=== PATIENT | male | born 1965 | race African-American/Black ===

== ENCOUNTER 2019-07-29 08:34 | Observation (INO) | payer SELFPAY ==
--- NOTE | 2019-07-29 09:20 | CT ---
CT head noncontrast HISTORY: Seizure. FINDINGS: There is no evidence of acute intracranial hemorrhage or infarct. Mild diffuse cortical atr ophy. There is no mass effect or shift of midline structures. Visualized paranasal sinuses remain well-aera carrie. Scalp scar overlies the left frontal calvarium. IMPRESSION : No acute intracranial abnormalities are demonstrated.
[2019-07-29 09:33] LABS: #Basophils 0.1 thou/uL (0.0-0.2); #Eosinphils 0.1 thou/uL (0.0-0.7); #Lymphocytes 0.7 thou/uL (1.20-3.40); #Monocytes 1.1 thou/uL (0.11-0.59); #Neutrophils 5.7 thou/uL (1.40-6.50); %Basophils 0.7 % (0.0-1.0); %Eosinophils 1.5 % (0.0-10.0); %Lymphocytes 9.1 % (21.0-51.0); %Monocytes 13.9 % (0.0-10.0); %Neutrophils 74.8 % (42.0-75.0); Hemoglobin 12.6 g/dL (14.0-18.0); Mean Corpuscular HGB CONC 33.8 g/dL (32.0-36.0); Mean Corpuscular Hemoglobin 33.4 pg (27.0-31.0); Mean Corpuscular Volume 98.8 fL (78.0-98.0); Mean Platelet Volume 10.2 fL (7.4-10.4); Platelet Count 155 thou/uL (130-400); RBC Distribution Width 11.7 % (11.5-14.5); Red Blood Cell (RBC) Count 3.76 mill/uL (4.70-6.10); White Blood Cell (WBC) Count 7.6 thou/uL (4.8-10.8)
[2019-07-29 09:50] LABS: Acetaminophen Less than 6.0 mcg/mL (10.0-30.0); Alcohol Less than 10 mg/dL (Less than 10); Salicylate Less than 8.0 mg/dL (15.0-30.0)
[2019-07-29 09:56] LABS: ALT (SGPT) 86 U/L (8-55); AST (SGOT) 77 U/L (5-34); Alkaline Phosphatase 50 U/L (40-110); Anion Gap 16 mmol/L (10-20); BUN (Urea Nitrogen) 12 mg/dL (8.4-25.7); Bilirubin, Total 0.8 mg/dL (0.2-1.2); Calc. Creatinine Clearance 0 mL/min (70-130); Calcium 9.1 mg/dL (7.8-10.44); Carbon Dioxide 20 mmol/L (22-29); Chloride 99 mmol/L (98-107); Estimated GFR-MDRD 79; Globulin 3.5 g/dL (2.4-3.5); Glucose 210 mg/dL (70-105); Potassium 3.7 mmol/L (3.5-5.1); Protein, Total 7.5 g/dL (6.0-8.3); Sodium 131 mmol/L (136-145)
[2019-07-29 09:56] LABS: Bilirubin Negative (Negative); Blood, Urine 1+ (Negative); Clarity Clear (Clear); Glucose, Urine (Dipstick) Greater than 1000 mg/dL (Negative); Leukocyte Negative Leu/uL (Negative); Nitrite Negative (Negative); Protein, Urine (Dipstick) 200 mg/dL (Neg-Trace); RBC/HPF 0-3 HPF (0-3); Squamous Epithelial 0-3 HPF (0-3); Urobilinogen Normal mg/dL (Less than 2); WBC/HPF 0-3 HPF (0-3)
[2019-07-29 09:59] LABS: Amphetamine Not Detected (NotDetected); Barbiturates Screen Not Detected (NotDetected); Benzodiazepine Screen Not Detected (NotDetected); Cocaine Metabolite Screen Not Detected (NotDetected); Medtox Control Line Valid? VALID (VALID); Medtox Reader # READER 1; Methadone Not Detected (NotDetected); Methamphetamine Not Detected (NotDetected); Opiate Screen Not Detected (NotDetected); Oxycodone Screen Not Detected (NotDetected); Phencyclidine (PCP) Not Detected (NotDetected); THC/Cannabinoid Screen Not Detected (NotDetected); Tricyclic Screen Not Detected (NotDetected)
[2019-07-29 10:09] LABS: Bacteria/HPF Rare-Few HPF (None Seen)
[2019-07-29 10:10] LABS: Sperm/HPF Rare HPF (None Seen)
--- NOTE | 2019-07-29 10:26 | RAD ---
PORTABLE CHEST 1 VIEW: Date: 07/29/2019 Time: 0959 hours HISTORY: Witnessed seizure, fall. FINDINGS: The heart size is normal. The aorta is tortuous. No focal areas of consolidation, pneumothoraces, or pleural effusions are seen. IMPRESSION: No radiographic evidence of acute cardiopulmonary process. POS: NAGAA
[2019-07-29] MEDS ORDERED: Lorazepam 2 MG/ML VIAL ONE (12:08)
[2019-07-29] MEDS ORDERED: Multivitamins, Adult 10 ML, Thiamine HCl 100 MG, Folic Acid 1 MG in Dextrose 5 %-0.45 %... IV SCH (12:30)
[2019-07-29] MEDS ORDERED: Diazepam 5 MG TAB ONE (13:12)
[2019-07-29 14:16] VITALS: BMI 27.3
[2019-07-29] MEDS ORDERED: Acetaminophen 325 MG TAB PO PRN (14:44)
[2019-07-29] MEDS ORDERED: Ondansetron PF 4 MG/2 ML Vial IVP PRN (14:44)
[2019-07-29] MEDS ORDERED: Lorazepam 2 MG/ML VIAL SLOW IVP PRN (14:46)
[2019-07-29] MEDS ORDERED: Dextrose 50% Abboject 50 ML SYRINGE SLOW IVP PRN (15:04)
[2019-07-29] MEDS ORDERED: Dextrose 5% in Water 1,000 ML IV PRN (15:04)
[2019-07-29] MEDS ORDERED: HumaLOG 300 UNITS/3 ML VIAL SC PRN ×2 (15:04)
--- NOTE | 2019-07-29 15:47 | HP ---
PRIMARY CARE PROVIDER: None. CHIEF COMPLAINT: Passed out. HISTORY OF PRESENT ILLNESS: A 53-year-old male with history of hypothyroidism and hypertension as well as reported significant daily alcohol use, who presents to the emergency room with a complaint of blacking out. History is obtained from the emergency room physician, who reports that the patient had witnessed seizure activity. Because of this, the patient was brought in by EMS. The patient notes that daily he has several drinks of gin and whiskey, and he stopped this 3 days ago. He reports that his hands have been shaky. He denies any prior history of similar symptoms, denies any seizure history. He also denies any fevers, chills, nausea, vomiting, or palpitations. In the emergency room, the patient noted to be tremulous, he received 2 mg IV Ativan, and started on a banana bag. Per my request, he was also given 10 mg of oral Valium and hospitalist called for admission. ALLERGIES: NO KNOWN DRUG ALLERGIES. CURRENT MEDICATIONS: Confirmed with [facility] in [place]. These medications were filled on June 28. 1. Amlodipine 5 mg daily. 2. Levothyroxine 100 mcg daily. PAST MEDICAL HISTORY: 1. Hypothyroidism. 2. Hypertension. 3. Cataracts. 4. Diabetes mellitus, not on medication. PAST SURGICAL HISTORY: Appendectomy. SOCIAL HISTORY: The patient reports quitting tobacco, lives with his mom, and uses alcohol as noted above. He reports that he was released from [facility] approximately a year ago and has been drinking alcohol since then. He is a full code, and his surrogate decision makers are either his mom or his sisters. FAMILY HISTORY: Significant for mom with cancer, he thinks it is colon cancer. REVIEW OF SYSTEMS: Positive for nausea after the medication he received today and approximately one week of his left knee aching. Negative for fevers, chills, nausea, vomiting, or palpitations. All remaining review of systems are reviewed and negative. PHYSICAL EXAMINATION: VITAL SIGNS: Most recent vital signs; blood pressure 151/97, pulse 96, respirations 18, temperature 99.2, and sat 100% on room air. GENERAL: Awake, alert, responsive, not in apparent distress. Able to speak in regular sentences. HEENT: Pupils are equal and round. Oral mucosa is pink and moist. NECK: Supple, nontender. LYMPHATICS: No palpable cervical or supraclavicular lymphadenopathy. HEART: Normal S1 and S2. Regular rate and rhythm. No significant murmur. ABDOMEN: Soft, present bowel sounds. Nontender, nondistended. EXTREMITIES: No clubbing, cyanosis, or edema. MUSCULOSKELETAL: He does have a palpable fluid consistent with bursitis on the medial aspect of his left knee, no overlying erythema or tenderness to palpation. NEUROLOGIC: Bilateral arm and hand tremors. No focal deficits. SKIN: No current rashes. PSYCH: Appears euthymic. VASCULAR: 2+ radial pulses. LABORATORY DATA: Reviewed. CBC; 7.6, 12.6, 37.1, and 155. Chemistry: 131, 3.7, 99, 20, 12, 1.18, 210. T bilirubin 0.8, AST 77, ALT 86, alkaline phosphatase 50, total protein 7.5, albumin 4. Prolactin 14. Urinalysis; present protein, present glucose, present ketones, 1+ blood, 0 to 3 red blood cells and white blood cells. Toxicology; negative urine drug screen. Negative alcohol. Negative Tylenol. Negative salicylates. Brain CT is personally reviewed. No acute intracranial process. Chest x-ray, no acute cardiopulmonary process. EKG, sinus rhythm, normal axis, LVH, normal intervals, no ST changes. IMPRESSION: 1. Seizure in the context of alcohol withdrawal in a patient with reported large volumes of daily alcohol consumption. 2. Hyponatremia, mild. 3. Diabetes mellitus, uncontrolled. 4. Elevated LFTs, likely secondary to above. 5. Anemia, also likely secondary to above. 6. Hypertension, not optimally controlled. 7. Hypothyroidism, unknown control, on replacement therapy. PLAN: 1. Start with observation status in the hospital. 2. Complete this banana bag, we will start oral vitamin replacement tomorrow. 3. We will schedule Valium 5 mg every 6 hours, continue the ASE protocol with p.r.n. Ativan for seizures or an ASE over 10. 4. Check a TSH in the morning and continue his current dose of levothyroxine for now. 5. Continue amlodipine with hold parameters to avoid hypotension. 6. Holding on a longer acting benzo as I am uncertain about the patient's liver function/ability to process long-acting medications that are hepatically cleared. 7. We will order a sliding scale insulin and ACHS glucose checks. 8. Monitor his renal panel including his sodium level. 9. Seizure precautions and fall precautions. 10. DVT prophylaxis with enoxaparin. 11. GI prophylaxis not indicated. 12. Code status is full. 13. Reviewed the plan of care with the patient, who demonstrates understanding, with encouragement for alcohol cessation in the future, no questions or further needs at the end of evaluation. 14. The patient is at high risk given age, comorbidities, and current presentation. Job ID: [id number] MTDD
[2019-07-29] MEDS: Diazepam 5 MG TAB PO SCH (17:20)
[2019-07-29] MEDS ORDERED: Melatonin 3 MG TAB PO SCH (22:30)
[2019-07-30] MEDS: Diazepam 5 MG TAB PO SCH ×2 (00:07→06:43)
[2019-07-30 05:45] LABS: Band 9 % (5-11); Eosinophils 3 % (0-10); Lymphocytes 18 % (21-51); MDiff Complete? YES; Mean Corpuscular HGB CONC 32.1 g/dL (32.0-36.0); Mean Corpuscular Hemoglobin 32.1 pg (27.0-31.0); Monocytes 15 % (0-10); Neutrophil 55 % (42-75); Platelet Count 156 thou/uL (130-400); Platelet Morphology Comment Appears Adequate; RBC Distribution Width 11.9 % (11.5-14.5); Red Blood Cell (RBC) Count 4.03 mill/uL (4.70-6.10); White Blood Cell (WBC) Count 6.3 thou/uL (4.8-10.8)
[2019-07-30 05:50] LABS: ALT (SGPT) 90 U/L (8-55); AST (SGOT) 87 U/L (5-34); Albumin 3.7 g/dL (3.5-5.0); Alkaline Phosphatase 48 U/L (40-110); Anion Gap 14 mmol/L (10-20); BUN (Urea Nitrogen) 11 mg/dL (8.4-25.7); Bilirubin, Total 1.1 mg/dL (0.2-1.2); Calc. Creatinine Clearance 97 mL/min (70-130); Carbon Dioxide 23 mmol/L (22-29); Chloride 103 mmol/L (98-107); Estimated GFR-MDRD Greater than 90; Globulin 3.6 g/dL (2.4-3.5); Glucose 89 mg/dL (70-105); Potassium 4.2 mmol/L (3.5-5.1); Protein, Total 7.3 g/dL (6.0-8.3); Sodium 136 mmol/L (136-145)
[2019-07-30] MEDS ORDERED: Levothyroxine Sodium 100 MCG TAB PO SCH (06:00)
[2019-07-30 07:48] VITALS: TEMP 98.5
[2019-07-30 08:41] VITALS: BP 145/101
[2019-07-30] MEDS ORDERED: Folic Acid 1 MG TAB PO SCH (09:00)
[2019-07-30] MEDS ORDERED: Enoxaparin Sodium 40 MG/0.4 ML SYRINGE SC SCH (09:00)
[2019-07-30] MEDS ORDERED: Thiamine 100 MG TAB PO SCH (09:00)
[2019-07-30] MEDS ORDERED: Amlodipine 5 MG TAB PO SCH (09:00)
[2019-07-30] MEDS ORDERED: Multivitamin W/ Minerals 1 TAB PO SCH (09:00)
--- NOTE | 2019-07-30 12:02 | CON ---
DATE OF CONSULTATION: 07/30/2019 CONSULTING SERVICE: Neurology. REASON FOR CONSULTATION: Alcohol withdrawal seizure. HISTORY OF PRESENT ILLNESS: A 53-year-old male with history significant for hypothyroidism, hypertension, and alcohol abuse, presented to the hospital with a complaint of passing out. He also had a witnessed seizure activity in the emergency room. Per the patient, he drinks several drinks of gin and whisky and stopped 3 days ago. Since then, he felt his hands were shaking, but he has no recollection of the seizures. He denies prior history of seizures or family history of seizures. He denies history of stroke, meningitis, encephalitis, or history of head trauma. He also denies any focal weakness, dizziness, palpitation, headache, nausea, vomiting, chest pain, or abdominal pain. In the emergency room, he was found to be tremulous and received 2 mg of Ativan IV and was started on banana bag. He was also given 10 mg Valium oral and was admitted for observation. He has no seizures since admission to the hospital. ROS: All 14 systems were reviewed and were negative except mentioned on HPI ALLERGIES: NO KNOWN DRUG ALLERGIES. CURRENT MEDICATIONS: 1. Amlodipine 5 mg daily. 2. Levothyroxine 100 mcg daily. PAST MEDICAL HISTORY: Hypothyroidism, hypertension, cataracts, diabetes mellitus, not taking any medicines. PAST SURGICAL HISTORY: Status post appendectomy. FAMILY HISTORY: No family history of epilepsy. SOCIAL HISTORY: The patient lives with his mother. He abuses alcohol. He recently quit tobacco. He was released from care home about a year ago. DATA REVIEWED: I reviewed the head CT, which was negative for acute intracranial pathology. Chest x-raydid not reveal any acute cardiopulmonary process. EKG shows normal sinus rhythm. PHYSICAL EXAMINATION 145/90 88 17 GENERAL: Patient is awake, alert and in no apparent distress. HEENT: Normocephalic and atraumatic. Sclerae are anicteric. NECK: Supple without meningismus or bruits. HEART: Regular. EXTREMITIES: Without clubbing, cyanosis, or edema. NEUROLOGIC: Normal exam as detailed below Mental Status: Speech is spontaneous and fluent, without dysarthria. Naming, repetitions, calculations, concentration, alertness, orientation, immediate and delayed recall, and fund of knowledge are intact. There is no language or cognitive deficits. Cranial Nerves: Pupils are equally reactive to light. Eye movements are full and conjugate without nystagmus. Visual guidry are full to confrontational testing. On funduscopic exam, there is no disk edema, exudate, or hemorrhage. Facial expression is symmetric. Facial sensation is symmetrically preserved. Hearing is symmetrically preserved as tested with a tuning fork. Tongue protrudes midline. Palate and uvula raise symmetrically. Sternocleidomastoid and trapezius strength are full. Motor: There is normal muscle tone, bulk, and power, 5/5 in all muscle groups of the upper and lower limbs. Reflexes: Muscle stretch reflexes are symmetric at all locations in the upper and lower extremities. Plantar response is toe down going bilaterally. Sensation: Sensation is preserved to light touch and vibration equally in the upper and lower extremities. Coordination: Coordination testing that includes [id number], rapid alternating movements and [id number]-ra-[id number] movements is equally accurate, with no dysmetria, ataxia, drift, or tremor. Gait: Gait and balance are stable, without ataxia. ASSESSMENT AND PLAN: A 53-year-old male with history of alcohol abuse, consulted for alcohol abuse and seizure. Head CT reviewed, which did not reveal any acute intracranial pathology. The patient does not have prior history of seizures but he has obvious precipitating factor for this provoked alcohol withdrawals, seizures , alcohol abuse. The patient counseled on alcohol abuse. Continue home medications. Continue medical management per primary team. Continue seizure precautions. He should not be driving for 3 months from the date of last seizure per [place] state law. He does not need anticonvulsants at this time. Consider MRI Brain as outpatient. The patient is clinically stable. He can be discharged with a followup with the primary care physician Thank you for the consult. Job ID: [id number] [facility]
--- NOTE | 2019-07-31 14:07 | DIS ---
DATE OF ADMISSION: 07/29/2019 DATE OF DISCHARGE: 07/30/2019 DISCHARGE DIAGNOSES: 1. Alcohol withdrawal seizure. 2. Hypertension. 3. Hypothyroidism. 4. Diet-controlled diabetes. 5. Elevated LFTs, likely secondary to alcohol abuse. 6. Alcohol abuse. HISTORY OF PRESENT ILLNESS: This patient is a 53-year-old male, who had reported significant daily alcohol user. At this time, stopped about 3 days prior. Subsequently was seen to have a seizure type activity by family member, brought to the emergency department, where he received Ativan and subsequent oral Valium. He was placed on observation status. He did well. He had no further seizure-type activity. He was awake and alert, ambulating and able to move around to take shower without any difficulties. He was confident that he would have no problem discontinuing alcohol use as that was likely reported to his seizure. He had a negative head CT, chest x-ray, and had a consultation from the neurologist, who felt he was stable for discharge without any further medications. PHYSICAL EXAMINATION: VITAL SIGNS: On the day of discharge, temperature was 98.5, pulse 91, BP ranged from 119/87 to 145/101, room air sat was 100%, and respirations were 16. GENERAL: He was awake and alert. HEART: Regular rate and rhythm. LUNGS: Clear. ABDOMEN: Benign. EXTREMITIES: No edema. NEUROLOGICAL: Appeared to be fully intact with no deficits. DISPOSITION: The patient is discharged home to resume his usual home medications. He will follow up with his primary care provider. His activity is unrestricted and his diet is regular. He can return to the hospital at anytime should he have the need to do so. Job ID: [id number]
--- NOTE | 2019-08-08 16:25 | EKG ---
Test Reason : Blood Pressure : / mmHG Vent. Rate : 093 BPM Atrial Rate : 093 BPM P-R Int : 160 ms QRS Dur : 106 ms QT Int : 360 ms P-R-T Axes : 070 003 028 degrees QTc Int : 447 ms Normal sinus rhythm Moderate voltage criteria for LVH, may be normal variant Borderline ECG Confirmed by DILEEP MOONEY, BERTA ([id number]), copy editor NICOLASA SIMMONS ([id number]) on 08/08/2019 4:25:17 PM Referred By: Confirmed By:BERTA FALK MD
== END 2019-07-30 11:40 | disposition home or self-care (01) ==
LOC: ERS 08:34 → 2SE 14:02
PROVIDERS: ADMIT Family Medicine; ATTEND Family Medicine
DX: F10.239 Alcohol dependence with withdrawal, unspecified (principal); R56.9 Unspecified convulsions; I10 Essential (primary) hypertension; E03.9 Hypothyroidism, unspecified; E87.1 Hypo-osmolality and hyponatremia; E11.9 Type 2 diabetes mellitus without complications; R79.89 Other specified abnormal findings of blood chemistry; D64.9 Anemia, unspecified; Z87.891 Personal history of nicotine dependence; Z79.899 Other long term (current) drug therapy
CPT/HCPCS: 36415; 36416; 70450; 71045; 80053; 80306; 80307; 81003; 81015; 83735; 84146; 84443; 84484; 85025; 93005; 94760; 96365; 96372; 96375; G0378; J1650; J2060; J3411; J7042

== ENCOUNTER 2023-09-07 15:08 | Emergency (ER) | payer SELFPAY ==
[2023-09-07 16:12] LABS: #Basophils 0.18 10x3/uL (0.0-0.2); %Basophils 2.3 % (0.0-1.0); %Eosinophils 5.3 % (0.0-10.0); %Lymphocytes 26.9 % (21.0-51.0); %Monocytes 14.6 % (0.0-10.0); %Neutrophils 50.5 % (42.0-75.0); Hemoglobin 12.6 g/dL (14.0-18.0); Mean Corpuscular HGB CONC 33.2 g/dL (32.0-36.0); Mean Corpuscular Hemoglobin 32.2 pg (27.0-31.0); Mean Corpuscular Volume 97.2 fL (78.0-98.0); Mean Platelet Volume 12.5 fL (7.4-10.4); Platelet Count 200 10x3/uL (130-400); RBC Distribution Width 14.1 % (11.5-14.5); Red Blood Cell (RBC) Count 3.91 mill/uL (4.70-6.10)
[2023-09-07 16:21] LABS: Bacteria/HPF None Seen HPF (None Seen); Bilirubin Negative (Negative); Blood, Urine Negative (Negative); CAUTI Indications for Culture Alt mental st,lethar; Clarity Clear (Clear); Glucose, Urine (Dipstick) Normal (Negative); Ketone, Urine Negative (Negative); Leukocyte Negative Leu/uL (Negative); Nitrite Negative (Negative); Protein, Urine (Dipstick) 30 mg/dL (Neg-Trace); RBC/HPF 0-3 HPF (0-3); Specific Gravity, Urine 1.004 (1.002-1.036); Squamous Epithelial None Seen HPF (0-3); Urobilinogen Normal mg/dL (Less than 2); WBC/HPF 0-3 HPF (0-3); pH, Urine 5.5 (5.0-9.0)
[2023-09-07 16:22] LABS: Urine Culture Reflex No No
[2023-09-07 16:23] LABS: Acetaminophen Less than 10 mcg/mL (10.0-30.0); Alcohol 418.7 mg/dL (Less than 10); Salicylate Less than 8.0 mg/dL (15.0-30.0)
[2023-09-07 16:24] LABS: ALT (SGPT) 136 U/L (8-55); AST (SGOT) 171 U/L (5-34); Albumin 3.5 g/dL (3.5-5.0); Alkaline Phosphatase 152 U/L (40-110); Anion Gap 20 mmol/L (10-20); BUN (Urea Nitrogen) 6 mg/dL (8.4-25.7); Bilirubin, Total 0.9 mg/dL (0.2-1.2); Calc. Creatinine Clearance 0 mL/min (70-130); Calcium 8.7 mg/dL (7.8-10.44); Carbon Dioxide 18 mmol/L (22-29); Chloride 104 mmol/L (98-107); Estimated GFR 101; Globulin 4.4 g/dL (2.4-3.5); Glucose 135 mg/dL (70-105); Protein, Total 7.9 g/dL (6.0-8.3); Sodium 138 mmol/L (136-145)
[2023-09-07 16:27] LABS: Amphetamine Not Detected (NotDetected); Barbiturates Screen Not Detected (NotDetected); Benzodiazepine Screen Not Detected (NotDetected); Cocaine Metabolite Screen Not Detected (NotDetected); Methadone Not Detected (NotDetected); Methamphetamine Not Detected (NotDetected); Opiate Screen Not Detected (NotDetected); Oxycodone Screen Not Detected (NotDetected); Phencyclidine (PCP) Not Detected (NotDetected); THC/Cannabinoid Screen Not Detected (NotDetected); Tricyclic Screen Not Detected (NotDetected)
== END 2023-09-07 17:55 | disposition home or self-care (01) ==
LOC: ERS 15:08
DX: R55 Syncope and collapse (principal); F10.129 Alcohol abuse with intoxication, unspecified; Z55.6 Problems related to health literacy; Z87.891 Personal history of nicotine dependence
CPT/HCPCS: 36415; 70450; 71045; 80053; 80306; 80307; 81001; 83605; 84484; 85025; 93005; 96360

== ENCOUNTER 2023-10-16 13:00 | Outpatient (CLI) | payer OTHER | END 2023-10-16 13:01 | disposition home or self-care (01) | LOC: BICRAD 13:00 | PROVIDERS: ATTEND Preventive Medicine Occupational Medicine | DX: Z02.71 Encounter for disability determination (principal); M54.50 Low back pain, unspecified; M25.572 Pain in left ankle and joints of left foot; M25.562 Pain in left knee; M47.816 Spondylosis without myelopathy or radiculopathy, lumbar region; M25.862 Other specified joint disorders, left knee | CPT/HCPCS: 72100 ==

== ENCOUNTER 2025-02-14 12:39 | Outpatient (CLI) | payer OTHER ==
[2025-02-14] MEDS ORDERED: Iopamidol 370 76% 100 ML VIAL ONE (14:04)
== END 2025-02-14 12:40 | disposition home or self-care (01) ==
LOC: CT 12:39
PROVIDERS: ATTEND Physician Assistant Medical
DX: K70.30 Alcoholic cirrhosis of liver without ascites (principal)
CPT/HCPCS: 74170; Q9967